=== PATIENT | female | born 1990 | race Caucasian/White ===

== ENCOUNTER 2016-11-19 | Emergency (ER) | payer MEDICAID ==
[2016-11-19] MEDS ORDERED: METOCLOPRAMIDE HCL INJ/PF 10 MG/2 ML SDV IM ONE (03:17)
[2016-11-19] MEDS ORDERED: DIPHENHYDRAMINE HCL 50 MG/ML VIAL IM ONE (03:17)
--- NOTE | 2016-11-19 03:21 | ER Document Report ---
ED General - General Chief Complaint: Headache Stated Complaint: HEADACHE Notes: Patient is 26 year old female who presents with complaint of a migraine headache. She has a long history of migraine headaches. She says this feels exactly like her usual headaches. She has medication she takes at home for them. Tonight it did not work and a portion to ER. Headache is gradual in onset. Not maximal onset. She has some photophobia. No focal weakness or numbness. She does have a history of lupus. She is on Plaquenil and prednisone for this. No recent trauma. TRAVEL OUTSIDE OF THE [place] IN LAST 30 DAYS: No - Related Data Allergies/Adverse Reactions: morphine [Morphine] Allergy (Intermediate, Verified 11/19/16 04:55) Hives oxycodone HCl [From Percocet] Allergy (Intermediate, Verified 11/19/16 04:55) Hives desmopressin acetate [From Stimate] Allergy (Verified 11/19/16 04:55) convulsions promethazine HCl [From Phenergan] Allergy (Verified 11/19/16 04:55) convulsions Past Medical History - Social History Smoking Status: Unknown if Ever Smoked Frequency of alcohol use: None Drug Abuse: None Family History: Reviewed & Not Pertinent, Other - Father-Epilepsy Patient has suicidal ideation: No Patient has homicidal ideation: No - Past Medical History Cardiac Medical History: Reports: Hx Hypertension - PIH with last delivery, Hx Heart Murmur - As a child, unknown now Pulmonary Medical History: Reports: Hx Asthma Neurological Medical History: Reports: Hx Seizures - x 2yrs Endocrine Medical History: Reports: Hx Hypothyroidism - On synthroid. Unsure of new dosage from [facility] Renal/ Medical History: Denies: Hx Peritoneal Dialysis Musculoskeltal Medical History: Reports Hx Fibromyalgia Past Surgical History: Reports: Hx Orthopedic Surgery, Hx Tonsillectomy - Immunizations Immunizations up to date: Yes Hx Diphtheria, Pertussis, Tetanus Vaccination: Yes - 2005 Review of Systems - Review of Systems Notes: My Normal Review Basic REVIEW OF SYSTEMS: CONSTITUTIONAL : Denies fever, chills, or sweats. Denies recent illness. RESPIRATORY: Denies cough, cold, or chest congestion. Denies shortness of breath, difficulty breathing, or wheezing. GASTROINTESTINAL: Denies abdominal pain. Denies nausea, vomiting, or diarrhea. Denies constipation. Last BM: MUSCULOSKELETAL: Denies neck or back pain or joint pain or swelling. SKIN: Denies rash or skin lesions. NEUROLOGICAL: Denies altered mental status or loss of consciousness. Has a headache. Denies weakness or paralysis or loss of use of either side. Denies problems with gait or speech. Denies sensory or motor loss. ALL OTHER SYSTEMS REVIEWED AND NEGATIVE. Physical Exam - Vital signs Vitals: Temp Pulse Resp BP Pulse Ox 98.1 F 74 18 133/83 H 98 11/19/16 01:45 11/19/16 01:45 11/19/16 01:45 11/19/16 01:45 11/19/16 01:45 - Notes Notes: General Appearance: Well nourished, alert, cooperative, no acute distress, mild obvious discomfort. Vitals: reviewed, See vital signs table. Head: no swelling or tenderness to the head Eyes: PERRL, EOMI, Conjuctiva clear Mouth: No decreasd moisture Neck: Supple, no neck tenderness, No thyromegaly Lungs: No wheezing, No rales, No rhonci, No accessory muscle use, good air exchange bilaterally. Heart: Normal rate, Regular rythm, No murmur, no rub Abdomen: Normal BS, soft, No rigidity, No abdominal tenderness, No guarding, no rebound, no abdominal masses, no organomegaly Extremities: strength 5/5 in all extremities, good pulses in all extremities, no swelling or tenderness in the extremities, no edema. Skin: warm, dry, appropriate color, no rash Neuro: speech clear, oriented x 3, normal affect, responds appropriately to questions. Cranial nerves II through XII are intact. Distal sensation intact. Patient moves all extremities without difficulty. Course - Vital Signs Vital signs: Temp Pulse Resp BP Pulse Ox 98.1 F 74 18 133/83 H 98 11/19/16 01:45 11/19/16 01:45 11/19/16 01:45 11/19/16 01:45 11/19/16 01:45 - Transfer of Care Notes: 11/19/16 05:26 Patient's headache is gone. She feels much improved. I am not concerned for subarachnoid hemorrhage and that her headaches gradual in onset exactly like her previous migraines. At this time I'll discharge her home with prescription for Reglan so she has recurrence of her headache she can take this with Benadryl. Encourage return to ER immediately if she has recurrent worsening headaches, any focal weakness or numbness, any fevers, or she feels that her headache is different from her typical migraines. I encourage her to follow up closely with her primary care doctor for reevaluation. Patient agrees with plan will be discharged home. Dictation of this chart was performed using voice recognition software; therefore, there may be some unintended grammatical errors. Discharge - Discharge Clinical Impression: Headache Qualifiers: Headache type: unspecified Headache chronicity pattern: acute headache Intractability: not intractable Qualified Code(s): R51 - Headache Condition: Good Disposition: HOME, SELF-CARE Additional Instructions: HEADACHE: The physician does not feel that the headache you are experiencing has a serious underlying cause. Most headaches are due to emotional stress, with resultant muscle tension (tension headache). Occasionally, headaches are secondary to changes in the blood vessels of the scalp (vascular headache and migraine headache). Sometimes, a headache is the first symptom of another developing illness, such as a viral infection. You have no evidence of stroke, bleeding, meningitis, or other serious cause of your headache. The treatment of headaches varies with the severity and cause of the pain. Not all headaches need pain shots. In fact, there is evidence that using narcotics for headaches may make them worse in the long run. The physician will determine the therapy that's in your best interest. If you develop a fever, if the headache is different from any you've previously experienced, or if the headache progressively worsens, then call your physician at once or go to the emergency room. REGLAN (METOCLOPRAMIDE): Reglan has been prescribed. This medicine affects the stomach and intestines. It can be used to treat nausea and vomiting, to prevent reflux of stomach acid up into the esophagus, or to increase the contractions of the stomach and intestines. It is often prescribed for esophagitis, and for paralysis of the stomach in diabetics. Reglan can cause either mild restlessness or drowsiness. You should contact the doctor at once if you become extremely restless, anxious, or cannot sleep, or if you develop uncontrollable motions of the lips, tongue, or jaw. Do not take alcohol with this medicine. Do not drive or operate machinery until you have been taking this medicine long enough to know how it affects you. Call the doctor if you develop abdominal pains, lightheadedness, black stool, or blood in the stool or vomitus. USE OF DIPHENHYDRAMINE: Diphenhydramine (Benadryl) is an antihistamine and has been recommended to help treat your headache and to prevent side effects of other medications used to treat headaches. The medication can be repeated four times daily. Age Elixir (12.5 mg/tsp) 25 mg pill adult 1-2 tabs Antihistamines may cause drowsiness, especially with the first dose. Do not operate machinery or drive while under the effects of the medication. Do not combine the medication with alcohol, or with any other medication without talking to your doctor. FOLLOW-UP CARE: If you have been referred to a physician for follow-up care, call the physician s office for an appointment as you were instructed or within the next two days. If you experience worsening or a significant change in your symptoms, notify the physician immediately or return to the Emergency Department at any time for re-evaluation. Please return to the ER immediately if you develop worsening recurrent headaches , vomiting, fevers, or feel unwell. Prescriptions: Metoclopramide HCl [Reglan 10 mg Tablet] 1 tab PO ASDIR PRN #25 tablet PRN Reason: Forms: Return to Work Referrals: YEFRI BRINOES MD [Primary Care Provider] - Follow up in 3-5 days
[2016-11-19] MEDS ORDERED: KETOROLAC TROMETHAMINE 60 MG/2 ML SDV IM ONE (04:20)
[2016-11-19] MEDS ORDERED: KETOROLAC TROMETHAMINE INJ/PF 30 MG/1 ML SDV IV ONE (04:21)
[2016-11-19] MEDS ORDERED: METOCLOPRAMIDE HCL INJ/PF 10 MG/2 ML SDV IV ONE (04:21)
[2016-11-19] MEDS ORDERED: DIPHENHYDRAMINE HCL 50 MG/ML VIAL IV ONE (04:21)
[2016-11-19 07:04] VITALS: BP 128/82
== END 2016-11-19 06:50 | disposition home or self-care (01) ==
LOC: ER
DX: R51 Headache (principal); M79.7 Fibromyalgia; H53.149 Visual discomfort, unspecified; E03.9 Hypothyroidism, unspecified; Z88.6 Allergy status to analgesic agent
CPT/HCPCS: 99284; 96374; 96375; 81025; J1200; J1885; J2765

== ENCOUNTER 2017-01-12 16:41 | Emergency (ER) | payer MEDICAID ==
--- NOTE | 2017-01-12 16:48 | ER Document Report ---
ED Medical Screen (RME) - General Stated Complaint: DIZZINESS/SYNCOPAL EPISODE Mode of Arrival: Ambulatory Information source: Patient Notes: Patient presents to the emergency department with recent syncope. Patient is wearing a Holter monitor. Denies fever vomiting diarrhea. Did not hit her head.Hx SLE, hypothyroid, seizures. LMP Dec 05. I have greeted and performed a rapid initial assessment of this patient. A comprehensive ED assessment and evaluation of the patient, analysis of test results and completion of the medical decision making process will be conducted by additional ED providers. TRAVEL OUTSIDE OF THE [place] IN LAST 30 DAYS: No - Related Data Allergies/Adverse Reactions: morphine [Morphine] Allergy (Intermediate, Verified 01/12/17 16:47) Hives oxycodone HCl [From Percocet] Allergy (Intermediate, Verified 01/12/17 16:47) Hives desmopressin acetate [From Stimate] Allergy (Verified 01/12/17 16:47) convulsions promethazine HCl [From Phenergan] Allergy (Verified 01/12/17 16:47) convulsions Past Medical History - Social History Family history: Other - Father with seizure disorder. - Past Medical History Cardiac Medical History: Reports: Hx Hypertension - PIH with last delivery, Hx Heart Murmur - As a child, unknown now Pulmonary Medical History: Reports: Hx Asthma Neurological Medical History: Reports: Hx Seizures - x 2yrs Endocrine Medical History: Reports: Hx Hypothyroidism - On synthroid. Unsure of new dosage from [facility] Renal/ Medical History: Denies: Hx Peritoneal Dialysis Musculoskeltal Medical History: Reports Hx Fibromyalgia Past Surgical History: Reports: Hx Orthopedic Surgery, Hx Tonsillectomy - Immunizations Immunizations up to date: Yes Hx Diphtheria, Pertussis, Tetanus Vaccination: Yes - 2005
[2017-01-12 18:02] LABS: ABSOLUTE EOSINOPHILS # (AUTO) 0.1 10^3/uL (0.0-0.6); ABSOLUTE LYMPHOCYTES (AUTO) 1.6 10^3/uL (0.5-4.7); ABSOLUTE MONOCYTES (AUTO) 0.2 10^3/uL (0.1-1.4); ABSOLUTE NEUT (AUTO) 2.8 10^3/uL (1.7-8.2); BASOPHILS % (AUTO) 0.1 % (0-2); EOSINOPHILS % (AUTO) 2.9 % (0-6); HEMATOCRIT 36.1 % (36.0-47.0); HEMOGLOBIN 11.8 g/dL (12.0-15.5); HGB HCT DIFFERENCE -0.7; LYMPHOCYTES % (AUTO) 33.3 % (13-45); MEAN CORPUSCULAR HEMOGLOBIN 26.8 pg (27.0-33.4); MEAN CORPUSCULAR HGB CONC 32.6 g/dL (32.0-36.0); MEAN CORPUSCULAR VOLUME 82 fl (80-97); MONOCYTES % (AUTO) 4.4 % (3-13); SEGMENTED NEUTROPHILS % (AUTO) 59.3 % (42-78); WHITE BLOOD COUNT 4.8 10^3/uL (4.0-10.5)
[2017-01-12 18:02] LABS: APPEARANCE,URINE SLIGHTLY-CLOUDY; BILIRUBIN,URINE NEGATIVE (NEGATIVE); GLUCOSE, URINE NEGATIVE (NEGATIVE); KETONES,URINE NEGATIVE (NEGATIVE); LEUKOCYTE ESTERASE,URINE SMALL (NEGATIVE); NITRITE,URINE NEGATIVE (NEGATIVE); PROTEIN,URINE NEGATIVE (NEGATIVE); UROBILINOGEN,URINE NEGATIVE mg/dL (<2.0)
[2017-01-12 18:20] LABS: ALANINE AMINOTRANSFERASE 27 U/L (9-52); ALBUMIN 4.6 g/dL (3.5-5.0); ALKALINE PHOSPHATASE 76 U/L (38-126); ANION GAP 11 (5-19); ASPARTATE AMINO TRANSFERASE 25 U/L (14-36); BILIRUBIN,TOTAL 0.5 mg/dL (0.2-1.3); BLOOD UREA NITROGEN 9 mg/dL (7-20); CALCIUM 9.7 mg/dL (8.4-10.2); CARBON DIOXIDE 29 mmol/L (22-30); CHLORIDE 104 mmol/L (98-107); GLUCOSE 64 mg/dL (75-110); POTASSIUM 3.8 mmol/L (3.6-5.0); SODIUM 144.1 mmol/L (137-145); TOTAL PROTEIN 8.9 g/dL (6.3-8.2)
--- NOTE | 2017-01-12 19:38 | ER Document Report ---
ED General - General Chief Complaint: Passed Out Prior to Arrival Stated Complaint: DIZZINESS/SYNCOPAL EPISODE Mode of Arrival: Ambulatory Notes: Patient is a 26-year-old female with past medical history of lupus, frequent episodes of syncope who presents today after having a syncopal episode just prior to arrival. Patient is currently wearing a Holter monitor due to her frequent episodes of syncope which have become increasingly more frequent over the last 2 months. She states before today's episode she was cooking in a hot kitchen and began to feel lightheaded. States she sat down on the chair because she knew she was about to pass out and then did have a loss of consciousness. She states that is approximately 2 minutes before she returned to her normal level of consciousness. States this feels very similar to her prior episodes of syncope. She denies any chest pain, shortness of breath, hemoptysis, or abdominal pain. She states she was instructed to come here by the Holter monitor company who contacted her after she pressed the button to indicate that she was having a syncopal event. She is not noted that it seems to trigger her episodes and that they do resolve spontaneously. TRAVEL OUTSIDE OF THE [place] IN LAST 30 DAYS: No - Related Data Allergies/Adverse Reactions: morphine [Morphine] Allergy (Intermediate, Verified 01/12/17 16:47) Hives oxycodone HCl [From Percocet] Allergy (Intermediate, Verified 01/12/17 16:47) Hives desmopressin acetate [From Stimate] Allergy (Verified 01/12/17 16:47) convulsions promethazine HCl [From Phenergan] Allergy (Verified 01/12/17 16:47) convulsions Past Medical History - General Information source: Patient - Social History Smoking Status: Never Smoker Chew tobacco use (# tins/day): No Frequency of alcohol use: None Drug Abuse: None Lives with: Spouse/Significant other Family History: Reviewed & Not Pertinent, Other - Father-Epilepsy Patient has suicidal ideation: No Patient has homicidal ideation: No - Past Medical History Cardiac Medical History: Reports: Hx Hypertension - PIH with last delivery, Hx Heart Murmur - As a child, unknown now Pulmonary Medical History: Reports: Hx Asthma Neurological Medical History: Reports: Hx Seizures - x 2yrs Endocrine Medical History: Reports: Hx Hypothyroidism - On synthroid. Unsure of new dosage from [facility] Renal/ Medical History: Denies: Hx Peritoneal Dialysis Musculoskeltal Medical History: Reports Hx Fibromyalgia Past Surgical History: Reports: Hx Orthopedic Surgery, Hx Tonsillectomy - Immunizations Immunizations up to date: Yes Hx Diphtheria, Pertussis, Tetanus Vaccination: Yes - 2005 Review of Systems - Review of Systems Notes: Constitutional: Negative for fever. HENT: Negative for sore throat. Eyes: Negative for visual changes. Cardiovascular: Negative for chest pain. Respiratory: Negative for shortness of breath. Gastrointestinal: Negative for abdominal pain, vomiting or diarrhea. Genitourinary: Negative for dysuria. Musculoskeletal: Negative for back pain. Skin: Negative for rash. Neurological: Negative for headaches, weakness or numbness. 10 point ROS negative except as marked above and in HPI. Physical Exam - Vital signs Vitals: Temp Pulse Resp BP Pulse Ox 97.9 F 91 20 140/86 H 100 01/12/17 16:47 01/12/17 16:47 01/12/17 16:47 01/12/17 16:47 01/12/17 16:47 Interpretation: Normal Notes: PHYSICAL EXAMINATION: GENERAL: Well-appearing, well-nourished and in no acute distress. HEAD: Atraumatic, normocephalic. EYES: Pupils equal round and reactive to light, extraocular movements intact, sclera anicteric, conjunctiva are normal. ENT: nares patent, oropharynx clear without exudates. Moist mucous membranes. NECK: Normal range of motion, supple without lymphadenopathy LUNGS: Breath sounds clear to auscultation bilaterally and equal. No wheezes rales or rhonchi. HEART: Regular rate and rhythm without murmurs ABDOMEN: Soft, nontender, normoactive bowel sounds. No guarding, no rebound. No masses appreciated. EXTREMITIES: Normal range of motion, no pitting or edema. No cyanosis. NEUROLOGICAL: No focal neurological deficits. Moves all extremities spontaneously and on command. PSYCH: Normal mood, normal affect. SKIN: Warm, Dry, normal turgor, no rashes or lesions noted. Course - Re-evaluation Re-evalutation: 01/12/17 19:34 Presentation of syncope of unclear etiology. Patient normotensive, alert, without focal neurologic deficits at time of arrival. Denies syncope was during exertion. No preceding symptoms of palpitations, chest pain, or shortness of breath. Patient asymptomatic at time of arrival. EKG is without evidence of HCOM , right heart strain, ST changes to suggest ischemia, prolong QTc, delta wave, epsilon wave, or Brugada syndrome. Patient denies any family history of sudden cardiac , personal history of of structural heart disease. Patient denies any symptoms to suggest an acute PE, ME, TAD, SAH, seizure, or acute GI bleed as the etiology of their syncope today. On exam, no murmurs to suggest critical aortic stenosis as possible etiology. Patient does have a Holter monitor on and I contacted the monitoring company to review the rhythm. It was noted that patient had a sinus rhythm the entire time that she had her episode of lightheadedness followed by syncope. Only one PAC was reported. Based on overall clinical history, exam findings, vitals, and patients appearance, I feel it is safe for patient to be discharged home at this time with close outpatient follow-up and strict return precautions. Patient has a long standing history of hypothyroidism and is currently out of her medications. Her synthroid will be restarted. I have informed her about the degree of her TSH elevation and the need for close follow-up with endocrinology. Patient is in agreement with this plan, has verbalized indications for return to ED, and questions have been answered. - Vital Signs Vital signs: Temp Pulse Resp BP Pulse Ox 98.2 F 72 18 122/68 98 01/12/17 20:07 01/12/17 20:07 01/12/17 20:07 01/12/17 20:07 01/12/17 20:07 - Laboratory Result Diagrams: 01/12/17 17:30 01/12/17 17:30 Laboratory results interpreted by me: 01/12/17 01/12/17 01/12/17 17:30 17:30 17:30 Hgb 11.8 L MCH 26.8 L RDW 16.0 H Glucose 64 L Total Protein 8.9 H TSH 71.10 H Ur Leukocyte Esterase 01/12/17 17:41 Hgb MCH RDW Glucose Total Protein TSH Ur Leukocyte Esterase SMALL H - EKG Interpretation by Me Additional EKG results interpreted by me: 01/12/17 19:35 Normal sinus rhythm. Rate 84. No ST elevations or depressions. QTC is 464. Discharge - Discharge Clinical Impression: Syncope Qualifiers: Syncope type: unspecified Qualified Code(s): R55 - Syncope and collapse Condition: Good Disposition: HOME, SELF-CARE Additional Instructions: You were seen today after an episode of passing out. Your EKG here is normal. At this time, we do not feel that your episode of passing out was from any life- threatening cause. Please drink plenty of fluids over the next several days. Return to emergency department if you have any further episodes of syncope, headache, weakness, numbness, chest pain, or shortness of breath. Please follow up closely with your primary care physician. Prescriptions: Levothyroxine Sodium 125 mcg PO DAILY #30 tablet Referrals: YEFRI BRIONES MD [Primary Care Provider] - Follow up as needed
--- NOTE | 2017-01-12 20:02 | EKG REPORT ---
SEVERITY:- NORMAL ECG - SINUS RHYTHM : Confirmed by: Zbigniew Villafuerte 12-Jan-2017 20:01:33
[2017-01-12 20:09] VITALS: BP 122/68
== END 2017-01-12 20:07 | disposition home or self-care (01) ==
LOC: ER 16:41
DX: R55 Syncope and collapse (principal); I49.1 Atrial premature depolarization; E03.9 Hypothyroidism, unspecified; Z88.5 Allergy status to narcotic agent; Z88.8 Allergy status to other drugs, medicaments and biological substances; J45.909 Unspecified asthma, uncomplicated
CPT/HCPCS: 36415; 80053; 81001; 84443; 84703; 85025; 93005; 93010; 99284

== ENCOUNTER 2017-04-07 14:01 | Emergency (ER) | payer MEDICAID ==
--- NOTE | 2017-04-07 14:31 | ER Document Report ---
ED Medical Screen (RME) - General Chief Complaint: Passed Out Prior to Arrival Stated Complaint: POSSIBLE SYNCOPE Time Seen by Provider: 04/07/17 14:30 Mode of Arrival: Medic Notes: 27-year-old female presents to ED for passing out at work. She states she got dizzy sat down and passed out woke up feeling tired and groggy and unable to bear weight so passed out again. States the people at work called EMS to come and get her. 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 And before that she done about 5 months ago and had a cardiac workup which was negative including a cardiac cath tech. States she has not been really monitored for this now. I have greeted and performed a rapid initial assessment of this patient. A comprehensive ED assessment and evaluation of the patient, analysis of test results and completion of medical decision making process will be conducted by an additional ED providers. TRAVEL OUTSIDE OF THE [place] IN LAST 30 DAYS: No - Related Data Allergies/Adverse Reactions: morphine [Morphine] Allergy (Intermediate, Verified 01/12/17 16:47) Hives oxycodone HCl [From Percocet] Allergy (Intermediate, Verified 01/12/17 16:47) Hives cephalexin [From Keflex] Allergy (Verified 04/07/17 14:20) desmopressin acetate [From Stimate] Allergy (Verified 01/12/17 16:47) convulsions promethazine HCl [From Phenergan] Allergy (Verified 01/12/17 16:47) convulsions Past Medical History - Social History Family history: Other - Father with seizure disorder. - Past Medical History Cardiac Medical History: Reports: Hx Hypertension - PIH with last delivery, Hx Heart Murmur - As a child, unknown now Pulmonary Medical History: Reports: Hx Asthma Neurological Medical History: Reports: Hx Seizures - x 2yrs Endocrine Medical History: Reports: Hx Hypothyroidism - On synthroid. Unsure of new dosage from [facility] Renal/ Medical History: Denies: Hx Peritoneal Dialysis Musculoskeltal Medical History: Reports Hx Fibromyalgia Past Surgical History: Reports: Hx Orthopedic Surgery, Hx Tonsillectomy - Immunizations Immunizations up to date: Yes Hx Diphtheria, Pertussis, Tetanus Vaccination: Yes - 2005 Physical Exam - Vital signs Vitals: Temp Pulse Resp BP Pulse Ox 98.0 F 76 18 115/77 98 04/07/17 14:21 04/07/17 14:21 04/07/17 14:21 04/07/17 14:21 04/07/17 14:21 Course - Vital Signs Vital signs: Temp Pulse Resp BP Pulse Ox 98.0 F 76 18 115/77 98 04/07/17 14:21 04/07/17 14:21 04/07/17 14:21 04/07/17 14:21 04/07/17 14:21
[2017-04-07 15:22] LABS: ABSOLUTE EOSINOPHILS # (AUTO) 0.1 10^3/uL (0.0-0.6); ABSOLUTE LYMPHOCYTES (AUTO) 1.3 10^3/uL (0.5-4.7); ABSOLUTE MONOCYTES (AUTO) 0.1 10^3/uL (0.1-1.4); ABSOLUTE NEUT (AUTO) 3.1 10^3/uL (1.7-8.2); BASOPHILS % (AUTO) 0.1 % (0-2); EOSINOPHILS % (AUTO) 1.9 % (0-6); HEMATOCRIT 36.7 % (36.0-47.0); HEMOGLOBIN 12.1 g/dL (12.0-15.5); HGB HCT DIFFERENCE -0.4; LYMPHOCYTES % (AUTO) 27.4 % (13-45); MEAN CORPUSCULAR HEMOGLOBIN 27.8 pg (27.0-33.4); MEAN CORPUSCULAR HGB CONC 32.9 g/dL (32.0-36.0); MEAN CORPUSCULAR VOLUME 85 fl (80-97); MONOCYTES % (AUTO) 2.7 % (3-13); RED BLOOD COUNT 4.34 10^6/uL (3.72-5.28); RED CELL DISTRIBUTION WIDTH 14.6 % (11.5-14.0); SEGMENTED NEUTROPHILS % (AUTO) 67.9 % (42-78); WHITE BLOOD COUNT 4.6 10^3/uL (4.0-10.5)
[2017-04-07 15:31] LABS: APPEARANCE,URINE SLIGHTLY-CLOUDY; BILIRUBIN,URINE NEGATIVE (NEGATIVE); GLUCOSE, URINE NEGATIVE (NEGATIVE); KETONES,URINE NEGATIVE (NEGATIVE); LEUKOCYTE ESTERASE,URINE SMALL (NEGATIVE); NITRITE,URINE NEGATIVE (NEGATIVE); PROTEIN,URINE NEGATIVE (NEGATIVE); URINE SPECIFIC GRAVITY 1.017; UROBILINOGEN,URINE NEGATIVE mg/dL (<2.0)
[2017-04-07 15:43] LABS: ALANINE AMINOTRANSFERASE 26 U/L (9-52); ALBUMIN 4.3 g/dL (3.5-5.0); ALKALINE PHOSPHATASE 67 U/L (38-126); ANION GAP 13 (5-19); ASPARTATE AMINO TRANSFERASE 24 U/L (14-36); BILIRUBIN,DIRECT 0.3 mg/dL (0.0-0.4); BILIRUBIN,TOTAL 0.5 mg/dL (0.2-1.3); BLOOD UREA NITROGEN 12 mg/dL (7-20); CALCIUM 9.2 mg/dL (8.4-10.2); CARBON DIOXIDE 24 mmol/L (22-30); CHLORIDE 103 mmol/L (98-107); CREATININE RESULT 0.74 mg/dL (0.52-1.25); GLUCOSE 72 mg/dL (75-110); POTASSIUM 4.1 mmol/L (3.6-5.0); SODIUM 140.1 mmol/L (137-145)
--- NOTE | 2017-04-07 17:25 | ER Document Report ---
ED General - General Chief Complaint: Passed Out Prior to Arrival Stated Complaint: POSSIBLE SYNCOPE Time Seen by Provider: 04/07/17 14:30 Mode of Arrival: Medic Information source: Patient Notes: 27-year-old female history of syncope seizure disorder presents with complaints of multiple episodes of syncope over the past few weeks. Patient notes she had a Holter monitor for 20 days during which she did syncopized and it was noted that her syncope was not related to her heart. Patient denies any chest pain shortness of breath prior to these episodes occurring. Notes when she does pass out she feels no symptoms prior to it. Today syncope lasted about 5 minutes without any obvious seizure-like activity TRAVEL OUTSIDE OF THE [place] IN LAST 30 DAYS: No - HPI Onset: Just prior to arrival Onset/Duration: Sudden Quality of pain: No pain Severity: Mild Pain Level: Denies Associated symptoms: Other Exacerbated by: Denies Relieved by: Denies Similar symptoms previously: Yes Recently seen / treated by doctor: Yes - Related Data Allergies/Adverse Reactions: morphine [Morphine] Allergy (Intermediate, Verified 01/12/17 16:47) Hives oxycodone HCl [From Percocet] Allergy (Intermediate, Verified 01/12/17 16:47) Hives cephalexin [From Keflex] Allergy (Verified 04/07/17 14:20) desmopressin acetate [From Stimate] Allergy (Verified 01/12/17 16:47) convulsions promethazine HCl [From Phenergan] Allergy (Verified 01/12/17 16:47) convulsions Past Medical History - Social History Smoking Status: Never Smoker Cigarette use (# per day): No Chew tobacco use (# tins/day): No Smoking Education Provided: No Family History: Reviewed & Not Pertinent, Other - Father-Epilepsy Patient has suicidal ideation: No Patient has homicidal ideation: No - Past Medical History Cardiac Medical History: Reports: Hx Hypertension - PIH with last delivery, Hx Heart Murmur - As a child, unknown now Pulmonary Medical History: Reports: Hx Asthma Neurological Medical History: Reports: Hx Seizures - x 2yrs Endocrine Medical History: Reports: Hx Hypothyroidism - On synthroid. Unsure of new dosage from [facility] Renal/ Medical History: Denies: Hx Peritoneal Dialysis Musculoskeltal Medical History: Reports Hx Fibromyalgia Past Surgical History: Reports: Hx Orthopedic Surgery, Hx Tonsillectomy - Immunizations Immunizations up to date: Yes Hx Diphtheria, Pertussis, Tetanus Vaccination: Yes - 2005 Review of Systems - Review of Systems Notes: REVIEW OF SYSTEMS: CONSTITUTIONAL : Denies fever, chills, or sweats. Denies recent illness. EENT: Denies eye, ear, throat, or mouth pain or symptoms. Denies nasal or sinus congestion or discharge. Denies throat, tongue, or mouth swelling or difficulty swallowing. CARDIOVASCULAR: Denies chest pain. Denies palpitations or racing or irregular heart beat. Denies ankle edema. RESPIRATORY: Denies cough, cold, or chest congestion. Denies shortness of breath, difficulty breathing, or wheezing. GASTROINTESTINAL: Denies abdominal pain or distention. Denies nausea, vomiting , or diarrhea. Denies blood in vomitus, stools, or per rectum. Denies black, tarry stools. Denies constipation. GENITOURINARY: Denies difficulty urinating, painful urination, burning, frequency, blood in urine, or discharge. FEMALE GENITOURINARY: Denies vaginal bleeding, heavy or abnormal periods, irregular periods. Denies vaginal discharge or odor. MUSCULOSKELETAL: Denies back or neck pain or stiffness. Denies joint pain or swelling. SKIN: Denies rash, lesions or sores. HEMATOLOGIC : Denies easy bruising or bleeding. LYMPHATIC: Denies swollen, enlarged glands. NEUROLOGICAL: Admits to syncope PSYCHIATRIC: Denies anxiety or stress. Denies depression, suicidal ideation, or homicidal ideation. ALL OTHER SYSTEMS REVIEWED AND NEGATIVE. Dictation was performed using [employer] voice recognition software PHYSICAL EXAMINATION: GENERAL: Well-appearing, well-nourished and in no acute distress. HEAD: Atraumatic, normocephalic. EYES: Pupils equal round and reactive to light, extraocular movements intact, conjunctiva are normal. ENT: Nares patent, oropharynx clear without exudates. Moist mucous membranes. NECK: Normal range of motion, supple without lymphadenopathy LUNGS: Breath sounds clear to auscultation bilaterally and equal. No wheezes rales or rhonchi. HEART: Regular rate and rhythm without murmurs ABDOMEN: Soft, nontender, nondistended abdomen. No guarding, no rebound. No masses appreciated. Female : deferred Musculoskeletal: Normal range of motion, no pitting or edema. No cyanosis. NEUROLOGICAL: Cranial nerves grossly intact. Normal speech, normal gait. Normal sensory, motor exams PSYCH: Normal mood, normal affect. SKIN: Warm, Dry, normal turgor, no rashes or lesions noted. Physical Exam - Vital signs Vitals: Temp Pulse Resp BP Pulse Ox 98.0 F 76 18 115/77 98 04/07/17 14:21 04/07/17 14:21 04/07/17 14:21 04/07/17 14:21 04/07/17 14:21 Course - Re-evaluation Re-evalutation: 04/07/17 22:26 Lab work noted no significant abnormality except for hypothyroidism, patient is already on medication for this and I have instructed that she double her dosage and patient states that she will follow-up with her physician who plans on performing an ultrasound in evaluating her thyroid gland Otherwise her current syncopal episodes may be secondary to seizure-like activity, patient has been instructed to follow-up with Dr. Crump After performing a Medical Screening Examination, I estimate there is LOW risk for INTRACRANIAL HEMORRHAGE, ISCHEMIC CVA, MALIGNANT DYSRHYTHMIA, ACUTE CORONARY SYNDROME, MENINGITIS, PULMONARY EMBOLISM, or SEPSIS thus I consider the discharge disposition reasonable. I have reevaluated this patient multiple times and no significant life threatening changes are noted. The patient and I have discussed the diagnosis and risks, and we agree with discharging home with close follow-up with the understanding that symptoms and presentations can change. We also discussed returning to the Emergency Department immediately if new or worsening symptoms occur. We have discussed the symptoms which are most concerning (e.g., changing or worsening pain, weakness, vomiting, fever) that necessitate immediate return. - Vital Signs Vital signs: Temp Pulse Resp BP Pulse Ox 97.7 F 58 L 18 119/72 100 04/07/17 17:51 04/07/17 17:51 04/07/17 17:51 04/07/17 17:51 04/07/17 17:51 - Laboratory Result Diagrams: 04/07/17 15:05 04/07/17 15:05 Laboratory results interpreted by me: 04/07/17 04/07/17 04/07/17 15:05 15:05 15:05 RDW 14.6 H Monocytes % 2.7 L Glucose 72 L Total Protein 9.0 H TSH Ur Leukocyte Esterase SMALL H 04/07/17 15:05 RDW Monocytes % Glucose Total Protein TSH 116.00 H Ur Leukocyte Esterase - EKG Interpretation by In EKG shows normal: Sinus rhythm, [place], Intervals, QRS Complexes Discharge - Discharge Clinical Impression: Syncope and collapse Hypothyroid Qualifiers: Hypothyroidism type: unspecified Qualified Code(s): E03.9 - Hypothyroidism, unspecified Condition: Stable Disposition: HOME, SELF-CARE Instructions: Syncopal Episode ([facility]) Forms: Return to Work Referrals: RAUL CRUMP MD [ACTIVE STAFF] - Follow up tomorrow
[2017-04-07 17:59] VITALS: BP 119/72
--- NOTE | 2017-04-07 21:11 | EKG REPORT ---
SEVERITY:- NORMAL ECG - SINUS RHYTHM : Confirmed by: Zbigniew Villafuerte 07-Apr-2017 21:11:18
== END 2017-04-07 17:59 | disposition home or self-care (01) ==
LOC: ER 14:01
DX: R55 Syncope and collapse (principal); E03.9 Hypothyroidism, unspecified; J45.909 Unspecified asthma, uncomplicated; Z88.5 Allergy status to narcotic agent; Z88.1 Allergy status to other antibiotic agents; Z88.8 Allergy status to other drugs, medicaments and biological substances; Z79.899 Other long term (current) drug therapy
CPT/HCPCS: 36415; 80053; 80177; 81001; 84443; 84703; 85025; 93005; 93010; 99284

== ENCOUNTER 2017-07-20 17:19 | Emergency (ER) | payer MEDICAID ==
[2017-07-20 17:33] VITALS: BP 143/92
--- NOTE | 2017-07-20 18:51 | ER Document Report ---
HPI - HPI Patient complains to provider of: Facial pain Onset: Other - 2-1/2 weeks Onset/Duration: Intermittent Quality of pain: Achy, Throbbing Severity: Moderate Pain Level: 3 Context: 27-year-old female presented to ED for come intermittent facial pain intermittently sometimes to the left sometimes to the right. She states she went to the dentist about 2 weeks ago and he told her there was no dental reason that would cause her pain to be from left to right intermittently. She has a history of lupus hypothyroid seizures migraine and fibromyalgia. She states that her dentist told her it may be trigeminal neuralgia. This is not a symptom of trigeminal neuralgia where the pain goes from left to right and back- and-forth. Associated Symptoms: Other Exacerbated by: Denies Relieved by: Denies Similar symptoms previously: Yes Recently seen / treated by doctor: Yes - ROS ROS below otherwise negative: Yes - CONSTITUTIONAL Constitutional: DENIES: Fever, Chills - EENT EENT: DENIES: Sore Throat, Ear Pain, Nasal Drainage-Clear, Nasal Drainage- Purulent, Congestion, Eye problems - NEURO Neurology: DENIES: Headache, Weakness, Vision blurred, Dizzinesss / Vertigo - CARDIOVASCULAR Cardiovascular: DENIES: Chest pain - RESPIRATORY Respiratory: DENIES: Trouble Breathing, Coughing - GASTROINTESTINAL Gastrointestinal: DENIES: Abdominal Pain, Nausea, Patient vomiting, Diarrhea, Constipation, Black / Bloody Stools - URINARY Urinary: DENIES: Dysuria, Urgency, Frequency - REPRODUCTIVE Reproductive: DENIES: :, Postmenopausal, Abnormal bleeding / discharge - MUSCULOSKELETAL Musculoskeletal: DENIES: Extremity pain, Back Pain, Neck Pain, Swelling - DERM Skin Color: Normal Skin Problems: None Past Medical History - General Information source: Patient - Social History Smoking Status: Never Smoker Cigarette use (# per day): No Chew tobacco use (# tins/day): No Smoking Education Provided: No Frequency of alcohol use: None Drug Abuse: None Lives with: Spouse/Significant other Family History: Arthritis, CAD, Hyperlipidemia, Hypertension, Malignancy, Thyroid Disfunction, Other - Father-Epilepsy Patient has suicidal ideation: No Patient has homicidal ideation: No - Past Medical History Cardiac Medical History: Reports: Hx Hypertension - PIH with last delivery, Hx Heart Murmur - As a child, unknown now Pulmonary Medical History: Reports: Hx Asthma Neurological Medical History: Reports: Hx Seizures - x 2yrs Endocrine Medical History: Reports: Hx Hypothyroidism - On synthroid. Unsure of new dosage from [facility] Renal/ Medical History: Denies: Hx Peritoneal Dialysis Musculoskeltal Medical History: Reports Hx Fibromyalgia Past Surgical History: Reports: Hx Gynecologic Surgery - d&c x2, Hx Orthopedic Surgery, Hx Tonsillectomy - Immunizations Immunizations up to date: Yes Hx Diphtheria, Pertussis, Tetanus Vaccination: Yes - 2005 Vertical Provider Document - INFECTION CONTROL TRAVEL OUTSIDE OF THE [place] IN LAST 30 DAYS: No - RESPIRATORY O2 Sat by Pulse Oximetry: 100 Course - Re-evaluation Re-evalutation: 07/20/17 20:41 Discussed signs and symptoms with Dr. owens it will discharge patient home to follow-up with her digital operations analyst. Patient given a prescription for prednisone. - Vital Signs Vital signs: Temp Pulse Resp BP Pulse Ox 98.6 F 83 16 143/92 H 100 07/20/17 17:28 07/20/17 17:28 07/20/17 17:28 07/20/17 17:28 07/20/17 17:28 Discharge - Discharge Clinical Impression: Facial pain, atypical Condition: Stable Disposition: HOME, SELF-CARE Instructions: Family Physicians / Practices Additional Instructions: You were seen today for facial pain that is intermittent and switches from right to left and back. He states she has been to your dentist who told her that there was no dental reason for this pain. You have multiple diagnoses that could contribute to your pain to include her lupus and new migraines and fibromyalgia. As I have discussed with you you need to follow-up with your digital operations analyst by telephone tomorrow to schedule a follow-up appointment to get his recommendations. As we discussed I will put you on a short burst of steroid and taken to get seen by your digital operations analyst. STEROID MEDICATION: You have been given a medicine of the cortisone/steroid class. This medication is used to control inflammation or allergy. It is usually only given for a short period of time, until the acute process subsides. There are usually no side effects from short-term use of cortisone-like medications. Some persons feel an increased sense of well-being and are not sleepy at bedtime. Long-term use of cortisone medications is best avoided, unless required for a severe condition. If your condition does not remit, or relapses after the course of corticosteroid medication, you should consult your physician. Ibuprofen Ibuprofen is an excellent, safe drug for pain control. In addition, it has potent antiinflammatory effects which are beneficial, especially in the treatment of injuries, arthritis, or tendonitis. It's best to take ibuprofen with food. Persons with ulcer disease or allergy to aspirin should notify their physician of this before taking ibuprofen. Take the medication exactly as prescribed. Don't take additional doses unless instructed to do so by your doctor. If you develop wheezing, shortness of breath, hives, faintness, stomach pain, vomiting, or dark black stools, return for re-evaluation at once. FOLLOW-UP CARE: If you have been referred to a physician for follow-up care, call the physician s office for an appointment as you were instructed or within the next two days. If you experience worsening or a significant change in your symptoms, notify the physician immediately or return to the Emergency Department at any time for re-evaluation. Prescriptions: Prednisone [Deltasone 10 mg Tablet] 10 mg PO ASDIR PRN #21 tablet PRN Reason: Forms: Elevated Blood Pressure
[2017-07-20] MEDS ORDERED: PREDNISONE 20 MG TABLET PO ONE (18:52)
== END 2017-07-20 19:03 | disposition home or self-care (01) ==
LOC: ER 17:19
DX: R51 Headache (principal)
CPT/HCPCS: 99283; J7512

== ENCOUNTER 2018-11-15 14:46 | Emergency (ER) | payer MEDICAID ==
[2018-11-15] MEDS ORDERED: ASPIRIN 325 MG TABLET PO ONE (15:15)
--- NOTE | 2018-11-15 15:18 | ER Document Report ---
ED Medical Screen (RME) - General Chief Complaint: Chest Pain Stated Complaint: CHEST PAIN/DIFFICULTY BREATHING/VISION CHANGES Time Seen by Provider: 11/15/18 15:15 Mode of Arrival: Ambulatory Information source: Patient TRAVEL OUTSIDE OF THE [place] IN LAST 30 DAYS: No - HPI Patient complains to provider of: CP Onset: Yesterday - pt with h/o hypothyroidism with onset of CP amd some dyspnea for the past day. Has not been able to afford her meds for many months - Related Data Allergies/Adverse Reactions: morphine [Morphine] Allergy (Intermediate, Verified 11/15/18 14:55) Hives oxycodone HCl [From Percocet] Allergy (Intermediate, Verified 11/15/18 14:55) Hives cephalexin [From Keflex] Allergy (Verified 11/15/18 14:55) desmopressin acetate [From Stimate] Allergy (Verified 11/15/18 14:55) convulsions promethazine HCl [From Phenergan] Allergy (Verified 11/15/18 14:55) convulsions Past Medical History - Social History Chew tobacco use (# tins/day): No Frequency of alcohol use: None Drug Abuse: None Family history: Other - Father with seizure disorder. - Past Medical History Cardiac Medical History: Reports: Hx Hypertension - PIH with last delivery, Hx Heart Murmur - As a child, unknown now Pulmonary Medical History: Reports: Hx Asthma Neurological Medical History: Reports: Hx Seizures - x 2yrs Endocrine Medical History: Reports: Hx Hypothyroidism - On synthroid. Unsure of new dosage from [facility] Renal/ Medical History: Denies: Hx Peritoneal Dialysis Musculoskeltal Medical History: Reports Hx Fibromyalgia Past Surgical History: Reports: Hx Gynecologic Surgery - d&c x2, Hx Oral Surgery - wisdom teeth, Hx Orthopedic Surgery, Hx Tonsillectomy - Immunizations Immunizations up to date: Yes Hx Diphtheria, Pertussis, Tetanus Vaccination: Yes - 2005 Physical Exam - Vital signs Vitals: Temp Pulse Resp BP Pulse Ox 98.4 F 89 14 123/79 99 11/15/18 14:50 11/15/18 14:50 11/15/18 14:50 11/15/18 14:50 11/15/18 14:50 Course - Vital Signs Vital signs: Temp Pulse Resp BP Pulse Ox 98.4 F 89 14 123/79 99 11/15/18 14:50 11/15/18 14:50 11/15/18 14:50 11/15/18 14:50 11/15/18 14:50
[2018-11-15 16:00] LABS: ABSOLUTE EOSINOPHILS # (AUTO) 0.1 10^3/uL (0.0-0.6); ABSOLUTE MONOCYTES (AUTO) 0.1 10^3/uL (0.1-1.4); ABSOLUTE NEUT (AUTO) 2.9 10^3/uL (1.7-8.2); BASOPHILS % (AUTO) 0.1 % (0-2); EOSINOPHILS % (AUTO) 3.5 % (0-6); HEMATOCRIT 35.6 % (36.0-47.0); HEMOGLOBIN 11.8 g/dL (12.0-15.5); LYMPHOCYTES % (AUTO) 24.8 % (13-45); MEAN CORPUSCULAR HEMOGLOBIN 26.4 pg (27.0-33.4); MEAN CORPUSCULAR HGB CONC 33.2 g/dL (32.0-36.0); MEAN CORPUSCULAR VOLUME 80 fl (80-97); MONOCYTES % (AUTO) 2.6 % (3-13); PLATELET COUNT 219 10^3/uL (150-450); RED BLOOD COUNT 4.49 10^6/uL (3.72-5.28); RED CELL DISTRIBUTION WIDTH 14.4 % (11.5-14.0); TOTAL CELLS COUNTED % (AUTO) 100 %; WHITE BLOOD COUNT 4.2 10^3/uL (4.0-10.5)
[2018-11-15 16:04] LABS: APPEARANCE,URINE CLEAR; BILIRUBIN,URINE NEGATIVE (NEGATIVE); COLOR,URINE YELLOW; GLUCOSE, URINE NEGATIVE (NEGATIVE); KETONES,URINE NEGATIVE (NEGATIVE); LEUKOCYTE ESTERASE,URINE NEGATIVE (NEGATIVE); NITRITE,URINE NEGATIVE (NEGATIVE); PROTEIN,URINE NEGATIVE (NEGATIVE); URINE SPECIFIC GRAVITY 1.016; UROBILINOGEN,URINE NEGATIVE mg/dL (<2.0)
--- NOTE | 2018-11-15 16:06 | RADIOLOGY REPORT (SQ) ---
EXAM DESCRIPTION: CHEST 2 VIEWS COMPLETED DATE/TIME: 11/15/2018 3:58 pm REASON FOR STUDY: cp COMPARISON: None. EXAM PARAMETERS: NUMBER OF VIEWS: two views TECHNIQUE: Digital Frontal and Lateral radiographic views of the chest acquired. RADIATION DOSE: NA LIMITATIONS: none FINDINGS: LUNGS AND PLEURA: No opacities, masses or pneumothorax. No pleural effusion. MEDIASTINUM AND HILAR STRUCTURES: No masses or contour abnormalities. HEART AND VASCULAR STRUCTURES: Heart normal size. No evidence for failure. BONES: No acute findings. HARDWARE: None in the chest. OTHER: No other significant finding. IMPRESSION: NO ACUTE RADIOGRAPHIC FINDING IN THE CHEST. TECHNICAL DOCUMENTATION: JOB ID: [id number] [employer]- All Rights Reserved Reading location - IP/workstation name: CT
--- NOTE | 2018-11-15 16:20 | ER Document Report ---
ED Cardiac - General Mode of Arrival: Ambulatory Information source: Patient TRAVEL OUTSIDE OF THE [place] IN LAST 30 DAYS: No <GOMEZ HILL - Last Filed: 11/15/18 17:29> <CAM CANTRELL - Last Filed: 11/15/18 19:07> - General Chief Complaint: Chest Pain Stated Complaint: CHEST PAIN/DIFFICULTY BREATHING/VISION CHANGES Time Seen by Provider: 11/15/18 15:15 Notes: 28-year-old female who presents to the emergency department today with complaints of chest pain. Patient states her dad of an CA at age 42 which is what made her concerned. Patient states that she did not have a relationship with her dad so she has no details regarding his medical history. Patient states the pain began around 11:00 today. Patient denies any shortness of breath. (GOMEZ HILL) - Related Data Allergies/Adverse Reactions: morphine [Morphine] Allergy (Intermediate, Verified 11/15/18 14:55) Hives oxycodone HCl [From Percocet] Allergy (Intermediate, Verified 11/15/18 14:55) Hives cephalexin [From Keflex] Allergy (Verified 11/15/18 14:55) desmopressin acetate [From Stimate] Allergy (Verified 11/15/18 14:55) convulsions promethazine HCl [From Phenergan] Allergy (Verified 11/15/18 14:55) convulsions Past Medical History - General Information source: Patient - Social History Smoking Status: Never Smoker Cigarette use (# per day): No Chew tobacco use (# tins/day): No Frequency of alcohol use: None Drug Abuse: None Lives with: Family Family History: Reviewed & Not Pertinent, Arthritis, CAD, Hyperlipidemia, Hypertension, Malignancy, Thyroid Disfunction, Other - Father-Epilepsy Patient has suicidal ideation: No Patient has homicidal ideation: No - Past Medical History Cardiac Medical History: Reports: Hx Hypertension - PIH with last delivery, Hx Heart Murmur - As a child, unknown now Pulmonary Medical History: Reports: Hx Asthma Neurological Medical History: Reports: Hx Seizures - x 2yrs Endocrine Medical History: Reports: Hx Hypothyroidism - On synthroid. Unsure of new dosage from [facility] Musculoskeletal Medical History: Reports Hx Fibromyalgia Past Surgical History: Reports: Hx Gynecologic Surgery - d&c x2, Hx Oral Surgery - wisdom teeth, Hx Orthopedic Surgery, Hx Tonsillectomy - Immunizations Immunizations up to date: Yes Hx Diphtheria, Pertussis, Tetanus Vaccination: Yes - 2005 <SERGIO,GOMEZ - Last Filed: 11/15/18 17:29> - Social History Family History: Other - Father-Epilepsy Father at 42 from possible heart disease <CAM CANTRELL - Last Filed: 11/15/18 19:07> Review of Systems - Review of Systems Constitutional: No symptoms reported EENT: No symptoms reported Cardiovascular: See HPI, Chest pain Respiratory: denies: Hurts to breathe, Short of breath Gastrointestinal: No symptoms reported Genitourinary: No symptoms reported Female Genitourinary: No symptoms reported Musculoskeletal: No symptoms reported Skin: No symptoms reported Hematologic/Lymphatic: No symptoms reported Neurological/Psychological: No symptoms reported -: Yes All other systems reviewed and negative <GOMEZ HILL - Last Filed: 11/15/18 17:29> Physical Exam <GOMEZ HILL - Last Filed: 11/15/18 17:29> - HEENT Neck: Thyromegally <CAM CANTRELL - Last Filed: 11/15/18 19:07> - Vital signs Vitals: Temp Pulse Resp BP Pulse Ox 98.4 F 89 14 123/79 99 11/15/18 14:50 11/15/18 14:50 11/15/18 14:50 11/15/18 14:50 11/15/18 14:50 - Notes Notes: Physical Exam: General: Alert, appears well. HEENT: Normocephalic. Atraumatic. PERRL. Extraocular movements intact. Oropharynx clear. Neck: Supple. Non-tender. Respiratory: No respiratory distress. Clear and equal breath sounds bilaterally. Mild sternal tenderness with palpation. Cardiovascular: Regular rate and rhythm. Abdominal: Normal Inspection. Non-tender. No distension. Normal Bowel Sounds. Back: Non-tender. No deformity or step off. Extremities: Moves all four extremities. Upper extremities: Normal inspection. Normal ROM. Lower extremities: Normal inspection. No edema. Normal ROM. Neurological: Normal cognition. AAOx4. Normal speech. Psychological: Normal affect. Normal Mood. Skin: Warm. Dry. Normal color. (GOMEZ HILL) Course - Laboratory Result Diagrams: 11/15/18 15:39 11/15/18 15:39 <GOMEZ HILL - Last Filed: 11/15/18 17:29> - Laboratory Result Diagrams: 11/15/18 15:39 11/15/18 15:39 - Diagnostic Test Radiology reviewed: Image reviewed, Reports reviewed - Chest x-ray is normal - EKG Interpretation by Me EKG shows normal: Sinus rhythm, [place], Intervals, QRS Complexes, ST-T Waves Rate: Normal - 75 Rhythm: NSR <CAM CANTRELL - Last Filed: 11/15/18 19:07> - Re-evaluation Re-evalutation: 11/15/18 19:03 At the time of discharge, reviewing the patient's lab work with her, and she added new symptoms of substernal pain when she swallows for quite some time. I reassured her that that is not a cardiac or pulmonary symptoms, and may be due to an irritated esophagus. She was again encouraged to follow-up with primary care provider to manage her medical problems and address any new symptoms. (CAM CANTRELL) - Vital Signs Vital signs: Temp Pulse Resp BP Pulse Ox 98.6 F 83 16 111/75 100 11/15/18 18:11 11/15/18 18:11 11/15/18 18:11 11/15/18 18:11 11/15/18 18:11 - Laboratory Laboratory results interpreted by me: 11/15/18 11/15/18 11/15/18 15:39 15:39 15:39 Hgb 11.8 L Hct 35.6 L MCH 26.4 L RDW 14.4 H Monocytes % 2.6 L Creatine Kinase < 20 L Total Protein 8.6 H TSH 25.30 H Free T4 11/15/18 15:39 Hgb Hct MCH RDW Monocytes % Creatine Kinase Total Protein TSH Free T4 0.55 L Discharge <GOMEZ HILL - Last Filed: 11/15/18 17:29> <CAM CANTRELL - Last Filed: 11/15/18 19:07> - Discharge Clinical Impression: Chest wall pain, Chest pain, mid sternal Hypothyroidism Qualifiers: 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 This is often caused by straining the muscles or joints in the chest during physical activity, direct trauma, coughing, or vigorous vomiting. Persons with arthritis are especially prone to this type of pain, due to inflammation of the cartilage joints near the breast bone. Occasionally, no cause can be found. Rest from strenuous physical activity. This kind of chest pain is usually made worse by movement of the chest. Depending on the symptoms, we may command medicine like ibuprofen or Aleve for pain and antiinflammatory effects. If the pain is new, and seems to be due to muscle strain, cold packs can help. Otherwise, apply gentle warmth to the painful area for 15 minutes every hour or two. You should contact the doctor immediately if things change. Further evaluation is needed if you develop a fever or cough, if the nature of the pain changes, or if you become short of breath. Your evaluation suggests the pain is coming from the sternum region and is not related to your heart or lungs. Your thyroid hormone levels are little bit low and you would probably benefit from starting back on your levothyroxine. Follow-up with a local medical doctor if not improving. RETURN TO THE EMERGENCY ROOM IF ANY NEW OR WORSENING SYMPTOMS. Forms: Return to Work Scribe Attestation: 11/15/18 16:43 I personally performed the services described in the documentation, reviewed and edited the documentation which was dictated to the scribe in my presence, and it accurately records my words and actions. (CAM CANTRELL) Scribe Documentation - Scribe Written by Elizabeth:: Elizabeth Powers, 11/15/2018 1732 acting as scribe for :: Nino <GOMEZ HILL - Last Filed: 11/15/18 17:29>
[2018-11-15 16:22] LABS: ALANINE AMINOTRANSFERASE 17 U/L (9-52); ALBUMIN 4.4 g/dL (3.5-5.0); ALKALINE PHOSPHATASE 77 U/L (38-126); ANION GAP 10 (5-19); ASPARTATE AMINO TRANSFERASE 24 U/L (14-36); BILIRUBIN,DIRECT 0.1 mg/dL (0.0-0.4); BILIRUBIN,TOTAL 0.3 mg/dL (0.2-1.3); BLOOD UREA NITROGEN 13 mg/dL (7-20); CALCIUM 9.3 mg/dL (8.4-10.2); CARBON DIOXIDE 24 mmol/L (22-30); CHLORIDE 105 mmol/L (98-107); GLUCOSE 87 mg/dL (75-110); POTASSIUM 4.6 mmol/L (3.6-5.0); SODIUM 139.3 mmol/L (137-145); TOTAL PROTEIN 8.6 g/dL (6.3-8.2)
[2018-11-15 16:27] LABS: CREATINE KINASE < 20 U/L (30-135)
[2018-11-15 16:33] LABS: CREATINE KINASE MB < 0.22 ng/mL (<4.55); TROPONIN I < 0.012 ng/mL
--- NOTE | 2018-11-15 16:40 | EKG REPORT ---
SEVERITY:- NORMAL ECG - SINUS RHYTHM : Confirmed by: Chintan Sevilla MD 15-Nov-2018 16:40:02
[2018-11-15 17:08] LABS: FREE T3 3.23 pg/mL (2.77-5.27); FREE T4 (FREE THYROXINE) 0.55 ng/dL (0.78-2.19)
[2018-11-15 18:12] VITALS: BP 111/75
== END 2018-11-15 18:15 | disposition home or self-care (01) ==
LOC: ER 14:46
DX: R07.89 Other chest pain (principal); J45.909 Unspecified asthma, uncomplicated; E06.3 Autoimmune thyroiditis; E03.8 Other specified hypothyroidism; Z82.49 Family history of ischemic heart disease and other diseases of the circulatory system; Z88.5 Allergy status to narcotic agent; Z88.1 Allergy status to other antibiotic agents; Z88.8 Allergy status to other drugs, medicaments and biological substances
CPT/HCPCS: 36415; 71046; 80053; 81001; 81025; 82550; 82553; 84439; 84443; 84481; 84484; 85025; 93005; 93010; 99284

== ENCOUNTER 2019-01-07 18:19 | Emergency (ER) | payer MEDICAID ==
[2019-01-07] MEDS ORDERED: RINGERS SOLUTION,LACTATED 1,000 ML IV ONE (20:12)
--- NOTE | 2019-01-07 20:12 | ER Document Report ---
ED Medical Screen (RME) - General Chief Complaint: Abdominal Pain Stated Complaint: ABDOMINAL PAIN Time Seen by Provider: 01/07/19 20:03 Mode of Arrival: Ambulatory Information source: Patient Notes: This is a 28-year-old female with history of seizures (Emery, Fanny), lupus, hypothyroidism, constipation. Patient presents to the emergency room with 2 days of abdominal pain, chills, bloating. She was seen at the urgent care and referred over for right lower quadrant pain. Obstetric history: 14 para 2 (history of multiple miscarriages), she has Nexplanon. TRAVEL OUTSIDE OF THE [place] IN LAST 30 DAYS: No - Related Data Allergies/Adverse Reactions: morphine [Morphine] Allergy (Intermediate, Verified 11/15/18 14:55) Hives oxycodone HCl [From Percocet] Allergy (Intermediate, Verified 11/15/18 14:55) Hives cephalexin [From Keflex] Allergy (Verified 11/15/18 14:55) desmopressin acetate [From Stimate] Allergy (Verified 11/15/18 14:55) convulsions promethazine HCl [From Phenergan] Allergy (Verified 11/15/18 14:55) convulsions Past Medical History - Social History Family history: Other - Father with seizure disorder. - Past Medical History Cardiac Medical History: Reports: Hx Hypertension - PIH with last delivery, Hx Heart Murmur - As a child, unknown now Pulmonary Medical History: Reports: Hx Asthma Neurological Medical History: Reports: Hx Seizures - x 2yrs Endocrine Medical History: Reports: Hx Hypothyroidism - On synthroid. Unsure of new dosage from [facility] Renal/ Medical History: Denies: Hx Peritoneal Dialysis Musculoskeltal Medical History: Reports Hx Fibromyalgia Past Surgical History: Reports: Hx Gynecologic Surgery - d&c x2, Hx Oral Surgery - wisdom teeth, Hx Orthopedic Surgery, Hx Tonsillectomy - Immunizations Immunizations up to date: Yes Hx Diphtheria, Pertussis, Tetanus Vaccination: Yes - 2005 Physical Exam - Vital signs Vitals: Temp Pulse Resp BP Pulse Ox 98.8 F 88 16 126/79 H 100 01/07/19 18:31 01/07/19 18:31 01/07/19 18:31 01/07/19 18:31 01/07/19 18:31 Course - Vital Signs Vital signs: Temp Pulse Resp BP Pulse Ox 98.8 F 88 16 126/79 H 100 01/07/19 18:31 01/07/19 18:31 01/07/19 18:31 01/07/19 18:31 01/07/19 18:31
[2019-01-07 21:58] LABS: ABSOLUTE EOSINOPHILS # (AUTO) 0.2 10^3/uL (0.0-0.6); ABSOLUTE LYMPHOCYTES (AUTO) 1.1 10^3/uL (0.5-4.7); ABSOLUTE MONOCYTES (AUTO) 0.1 10^3/uL (0.1-1.4); ABSOLUTE NEUT (AUTO) 4.1 10^3/uL (1.7-8.2); BASOPHILS % (AUTO) 0.1 % (0-2); EOSINOPHILS % (AUTO) 2.8 % (0-6); HEMATOCRIT 34.1 % (36.0-47.0); HEMOGLOBIN 11.5 g/dL (12.0-15.5); LYMPHOCYTES % (AUTO) 20.7 % (13-45); MEAN CORPUSCULAR HEMOGLOBIN 26.8 pg (27.0-33.4); MEAN CORPUSCULAR HGB CONC 33.6 g/dL (32.0-36.0); MEAN CORPUSCULAR VOLUME 80 fl (80-97); MONOCYTES % (AUTO) 2.6 % (3-13); PLATELET COUNT 208 10^3/uL (150-450); RED BLOOD COUNT 4.29 10^6/uL (3.72-5.28); RED CELL DISTRIBUTION WIDTH 14.8 % (11.5-14.0); SEGMENTED NEUTROPHILS % (AUTO) 73.8 % (42-78); TOTAL CELLS COUNTED % (AUTO) 100 %; WHITE BLOOD COUNT 5.5 10^3/uL (4.0-10.5)
[2019-01-07 22:11] LABS: APPEARANCE,URINE SLIGHTLY-CLOUDY; BILIRUBIN,URINE NEGATIVE (NEGATIVE); COLOR,URINE YELLOW; GLUCOSE, URINE NEGATIVE (NEGATIVE); KETONES,URINE NEGATIVE (NEGATIVE); LEUKOCYTE ESTERASE,URINE TRACE (NEGATIVE); NITRITE,URINE NEGATIVE (NEGATIVE); PROTEIN,URINE NEGATIVE (NEGATIVE); URINE SPECIFIC GRAVITY 1.017; UROBILINOGEN,URINE NEGATIVE mg/dL (<2.0)
[2019-01-07 22:31] LABS: ALANINE AMINOTRANSFERASE 36 U/L (9-52); ALBUMIN 4.4 g/dL (3.5-5.0); ALKALINE PHOSPHATASE 96 U/L (38-126); ANION GAP 9 (5-19); ASPARTATE AMINO TRANSFERASE 31 U/L (14-36); BILIRUBIN,DIRECT 0.1 mg/dL (0.0-0.4); BILIRUBIN,TOTAL 0.5 mg/dL (0.2-1.3); BLOOD UREA NITROGEN 10 mg/dL (7-20); CALCIUM 9.4 mg/dL (8.4-10.2); CARBON DIOXIDE 28 mmol/L (22-30); CHLORIDE 101 mmol/L (98-107); GLUCOSE 82 mg/dL (75-110); LIPASE 42.8 U/L (23-300); POTASSIUM 4.2 mmol/L (3.6-5.0); SODIUM 138.4 mmol/L (137-145); TOTAL PROTEIN 8.8 g/dL (6.3-8.2)
[2019-01-07 23:47] LABS: FREE T3 3.48 pg/mL (2.77-5.27); FREE T4 (FREE THYROXINE) 0.58 ng/dL (0.78-2.19)
[2019-01-07] MEDS ORDERED: METOCLOPRAMIDE HCL ORAL SOLN 10 MG/10 ML UDCUP PO ONE (23:57)
[2019-01-07] MEDS ORDERED: LIDOCAINE 2% VISCOUS SOLN 20 ML UDCUP PO ONE (23:57)
[2019-01-07] MEDS ORDERED: MAG HYDROX/AL HYDROX/SIMETH SUSP 30 ML UDCUP PO ONE (23:57)
[2019-01-08] LABS: THYROID STIMULATING HORMONE 35.8 uIU/mL (0.47-4.68)
--- NOTE | 2019-01-08 01:00 | ER Document Report ---
ED General - General Chief Complaint: Abdominal Pain Stated Complaint: ABDOMINAL PAIN Time Seen by Provider: 01/07/19 20:03 Mode of Arrival: Ambulatory Notes: Patient is a 28-year-old female presents with complaint of epigastric abdominal pain. Patient says that the pain is worse when she lays flat. Is been ongoing for 2 days. She also feels as if there is some swelling across her abdomen her abdomen feels more bloated than usual. She is a history of hypothyroidism. She supposed to be on Tirosint not had it for some time due to insurance issues. She says that regards to her abdominal pain she feels the pain into esophagus whenever she tries to eat something. She says if she sitting up the pain is less. Some nausea. No vomiting. No fevers. No blood in her stool. No other complaints at this time. TRAVEL OUTSIDE OF THE [place] IN LAST 30 DAYS: No - Related Data Allergies/Adverse Reactions: morphine [Morphine] Allergy (Intermediate, Verified 11/15/18 14:55) Hives oxycodone HCl [From Percocet] Allergy (Intermediate, Verified 11/15/18 14:55) Hives cephalexin [From Keflex] Allergy (Verified 11/15/18 14:55) desmopressin acetate [From Stimate] Allergy (Verified 11/15/18 14:55) convulsions promethazine HCl [From Phenergan] Allergy (Verified 11/15/18 14:55) convulsions Past Medical History - General Information source: Patient - Social History Smoking Status: Never Smoker Frequency of alcohol use: None Drug Abuse: None Family History: Other - Father-Epilepsy Father at 42 from possible heart disease Patient has suicidal ideation: No Patient has homicidal ideation: No - Past Medical History Cardiac Medical History: Reports: Hx Hypertension - PIH with last delivery, Hx Heart Murmur - As a child, unknown now Pulmonary Medical History: Reports: Hx Asthma Neurological Medical History: Reports: Hx Seizures - x 2yrs Endocrine Medical History: Reports: Hx Hypothyroidism - On synthroid. Unsure of new dosage from [facility] Renal/ Medical History: Denies: Hx Peritoneal Dialysis Musculoskeletal Medical History: Reports Hx Fibromyalgia Past Surgical History: Reports: Hx Gynecologic Surgery - d&c x2, Hx Oral Surgery - wisdom teeth, Hx Orthopedic Surgery, Hx Tonsillectomy - Immunizations Immunizations up to date: Yes Hx Diphtheria, Pertussis, Tetanus Vaccination: Yes - 2005 Review of Systems - Review of Systems Notes: My Normal Review Basic REVIEW OF SYSTEMS: CONSTITUTIONAL : Denies fever, chills, or sweats. Denies recent illness. EENT: Denies eye, ear, throat, or mouth pain or symptoms. Denies nasal or sinus congestion. CARDIOVASCULAR: Denies chest pain. RESPIRATORY: Denies cough, cold, or chest congestion. Denies shortness of breath, difficulty breathing, or wheezing. GASTROINTESTINAL: Epigastric abdominal pain. Some nausea. No vomiting. GENITOURINARY: Denies difficulty urinating, painful urination, burning, frequency, or blood in urine. MUSCULOSKELETAL: Denies neck or back pain or joint pain or swelling. SKIN: Denies rash or skin lesions. NEUROLOGICAL: Denies altered mental status or loss of consciousness. Denies headache. Denies weakness or paralysis or loss of use of either side. Denies problems with gait or speech. Denies sensory or motor loss. ALL OTHER SYSTEMS REVIEWED AND NEGATIVE. Physical Exam - Vital signs Vitals: Temp Pulse Resp BP Pulse Ox 98.8 F 88 16 126/79 H 100 01/07/19 18:31 01/07/19 18:31 01/07/19 18:31 01/07/19 18:31 01/07/19 18:31 - Notes Notes: General Appearance: Well nourished, alert, cooperative, no acute distress, mild obvious discomfort. Well-appearing. Vitals: reviewed, See vital signs table. Head: no swelling or tenderness to the head Eyes: PERRL, EOMI, Conjuctiva clear Mouth: No decreasd moisture Neck: Supple, no neck tenderness Lungs: No wheezing, No rales, No rhonci, No accessory muscle use, good air exchange bilaterally. Heart: Normal rate, Regular rythm, No murmur, no rub Abdomen: Normal BS, soft, No rigidity, no reproducible upper abdominal pain to palpation. Very mild minimal pain palpation over right lower quadrant. Extremities: strength 5/5 in all extremities, good pulses in all extremities, no swelling or tenderness in the extremities, no edema. Skin: warm, dry, appropriate color, no rash Neuro: speech clear, oriented x 3, normal affect, responds appropriately to questions. Course - Re-evaluation Re-evalutation: 01/08/19 01:[address] cancel his CT scan. Patient's abdomen exam is very benign. She has very minimal pain to palpation right lower quadrant and she does not have any pain when I am not palpating over the right lower quadrant. All her pain is in epigastric region and is worse when she lays flat. It improved with a GI cocktail. She also mentions that it hurts in her esophagus and upper stomach when she eats. I suspect this most likely has gastritis or esophagitis. I will place her on Carafate as well as omeprazole. She does feel some bloating throughout her abdomen. She has been off her Tirosint now for some time. She says this worked very well for control of her thyroid function. Her thyroid studies are off. She says Synthroid did not control her thyroid studies very well. I will prescribe her Tirosint. I was able to look up on [facility] and find it for just under $140 for a 30-day supply. She is to be on 300mcg daily however will start her back at 150 mcg daily. Informed her that she needs her thyroid studies rechecked in approximately a week. I talked her length about watching her diet and avoiding fatty foods, fried foods, acidic foods. Patient agrees with plan will be discharged home. Encouraged her return to ER immediately if she has fevers, vomiting, worsening pain, any pain in the right lower quadrant, or if she feels unwell. Dictation of this chart was performed using voice recognition software; therefore, there may be some unintended grammatical errors. - Vital Signs Vital signs: Temp Pulse Resp BP Pulse Ox 98.7 F 82 16 115/73 100 01/08/19 00:26 01/08/19 00:26 01/08/19 00:26 01/08/19 00:26 01/08/19 00:26 - Laboratory Result Diagrams: 01/07/19 21:31 01/07/19 21:31 Laboratory results interpreted by me: 01/07/19 01/07/19 01/07/19 21:31 21:31 21:31 Hgb 11.5 L Hct 34.1 L MCH 26.8 L RDW 14.8 H Monocytes % 2.6 L Total Protein 8.8 H TSH Free T4 Ur Leukocyte Esterase TRACE H 01/07/19 21:31 Hgb Hct MCH RDW Monocytes % Total Protein TSH 35.80 H Free T4 0.58 L Ur Leukocyte Esterase Discharge - Discharge Clinical Impression: Abdominal pain Qualifiers: Abdominal location: epigastric Qualified Code(s): R10.13 - Epigastric pain Hypothyroidism Qualifiers: Hypothyroidism type: unspecified Qualified Code(s): E03.9 - Hypothyroidism, unspecified Condition: Good Disposition: HOME, SELF-CARE Additional Instructions: Lab work looking at your abdomen did not show any concerning findings. I think appendicitis is unlikely being that you are not having ongoing pain in the right lower portion of your abdomen and the pain is mostly in the epigastric region. This is more consistent with a gastric ulcer or gastritis. Treatment for this is an [id number] medication called omeprazole. Please take this every day. I have also prescribed Carafate. This is a medication that helps coat the esophagus and stomach. I have prescribed the tablet form as it is much less expensive. Please avoid spicy foods. Please avoid fatty foods and acidic foods. I have represcribed your Tirosint. Please follow-up with your doctor or the ER in 1 week for reevaluation and to make sure that your thyroid studies are improving. Return to the ER immediately if you have worsening abdominal pain, fevers, vomiting, or any pain over the right lower quadrant. Prescriptions: Levothyroxine Sodium [Tirosint] 150 mcg PO DAILY #30 capsule Sucralfate [Carafate 1 gm Tablet] 1 gm PO ACHS #120 tablet Forms: Return to Work
[2019-01-08 01:08] VITALS: BP 115/73
== END 2019-01-08 01:08 | disposition home or self-care (01) ==
LOC: ER 18:19
DX: R10.13 Epigastric pain (principal); E03.9 Hypothyroidism, unspecified; Z88.6 Allergy status to analgesic agent; Z88.3 Allergy status to other anti-infective agents
CPT/HCPCS: 99283; 96360; 96361; 36415; 84439; 84702; 83690; 84443; 85025; 80053; 81001; 84481; J3490 ×3; J7120